=== PATIENT | female | born 1975 | race African-American/Black ===

== ENCOUNTER 2023-02-22 22:28 | Emergency (ER) | payer MEDICAID, OTHER ==
[~2023-02-22] VITALS: Ht 154.9 cm; Wt 76.7 kg
[2023-02-22 22:34] VITALS: O2SAT 98
[2023-02-23 00:45] VITALS: BP 163/101; PULSE 91; RESP 16; TEMP 98.6
[2023-02-23] MEDS ORDERED: ACETAMINOPHEN 325MG TABLET PO ONE (00:45)
[2023-02-23] MEDS ORDERED: AMOXICILLIN/POTASSIUM CLAVULANATE 875/125MG TAB PO ONE (00:45)
[2023-02-23] MEDS ORDERED: IBUPROFEN 400MG TABLET PO ONE (00:45)
[2023-02-23] MEDS ORDERED: TETANUS, DIPHTHERIA, PERTUSSIS VAC/PF 0.5ML (>10YR OLD) IM ONE (00:45)
[2023-02-23] MEDS ORDERED: BACITRACIN ZINC OINT UDPKT TOP ONE (00:45)
[2023-02-23] MEDS ORDERED: IBUP-2028 MT (01:34)
[2023-02-23] MEDS ORDERED: TOPUD PO (01:34)
[2023-02-23] MEDS ORDERED: AMOX1TAB16 MT (01:34)
== END 2023-02-23 02:11 | disposition home or self-care (01) ==
LOC: ER 22:28
DX: S61.511A Laceration without foreign body of right wrist, initial encounter (principal); S61.451A Open bite of right hand, initial encounter; W54.0XXA Bitten by dog, initial encounter; Y93.89 Activity, other specified; Y92.89 Other specified places as the place of occurrence of the external cause; Y99.8 Other external cause status
CPT/HCPCS: 12001; 99284; 73130; 90715; 90471; Z7610

== ENCOUNTER 2023-03-04 09:25 | Emergency (ER) | payer OTHER ==
[~2023-03-04] VITALS: Ht 154.9 cm; Wt 77.0 kg
[~2023-03-04 09:25] MED LIST: AMOX1TAB16 MT; IBUP-2028 MT; TOPUD PO
[2023-03-04 09:33] VITALS: BP 152/98; RESP 20; TEMP 98; O2SAT 100
[2023-03-04 09:36] VITALS: PULSE 108
== END 2023-03-04 10:33 | disposition home or self-care (01) ==
LOC: ER 09:25
DX: S61.512D Laceration without foreign body of left wrist, subsequent encounter (principal); Z48.02 Encounter for removal of sutures; X58.XXXD Exposure to other specified factors, subsequent encounter
CPT/HCPCS: 99281

== ENCOUNTER 2023-04-23 09:08 | Emergency (ER) | payer MEDICAID, OTHER ==
[~2023-04-23] VITALS: Ht 152.4 cm; Wt 75.0 kg
[2023-04-23 09:26] VITALS: TEMP 97.7; O2SAT 98
[2023-04-23 10:45] VITALS: BP 172/97; PULSE 83; RESP 18
[2023-04-23] MEDS ORDERED: MORPHINE SULFATE 10 MG/ML CPJ IM ONE (10:45)
[2023-04-23] MEDS ORDERED: IBUP-2029 MT (11:45)
== END 2023-04-23 11:52 | disposition home or self-care (01) ==
LOC: ER 09:08
DX: S92.252A Displaced fracture of navicular [scaphoid] of left foot, initial encounter for closed fracture (principal); Z68.32 Body mass index [BMI] 32.0-32.9, adult; X58.XXXA Exposure to other specified factors, initial encounter; Y93.89 Activity, other specified; Y92.89 Other specified places as the place of occurrence of the external cause; Y99.8 Other external cause status
CPT/HCPCS: 99283; 73110; 96372; J2270